=== PATIENT | male | born 1970 | race Asian ===

== ENCOUNTER 2021-08-23 04:33 | Emergency (ER) | payer MEDICAID ==
[~2021-08-23] VITALS: Ht 165.1 cm; Wt 113.4 kg
--- NOTE | 2021-08-23 04:34 | NUR ---
ROMULO TO ER BED 07, TRANSFERRED FROM EMS [facility] TO ER [facility] VIA EMS
[2021-08-23] MEDS ORDERED: MORPHINE SULFATE 4 MG/ML SYR IM ONE (04:35)
[2021-08-23] MEDS ORDERED: KETOROLAC 30 MG/ML VIAL IM ONE (04:35)
[2021-08-23 04:40] VITALS: BP 157/95
[2021-08-23] MEDS ORDERED: diazePAM 5 MG TAB PO ONE (05:25)
[2021-08-23] MEDS ORDERED: ACET-8386 PO ×2 (05:28→09:15)
[2021-08-23] MEDS ORDERED: NAPR-54 PO ×2 (05:28→09:15)
--- NOTE | 2021-08-23 06:29 | NUR ---
0630 - PT UNABLE TO AMBULATE AT THIS TIME DUE TO PAIN. PT STATES HEAT PACK AND MEDICATION IS HELPING SLOWLY. WILL CONTINUE TO MONITOR.
--- NOTE | 2021-08-23 07:12 | NUR ---
HANDOFF TO REBECA Addendum: 08/23/21 at 0712 by LETI HANDOFF TO REBECA. PLAN IS FOR D/C PENDING AMBULATION.
--- NOTE | 2021-08-23 07:20 | NUR ---
received report from aric garcia rn for continuity of care. pt [id number]. on room air. complains of 8/10 pain at this time. non ambulatory at this time. will continue to closely monitor.
--- NOTE | 2021-08-23 08:10 | NUR ---
51 Y/O M PRESENTS TO ED WITH L HIP PAIN. PT STATES PAIN STARTED 2 WEEK AGO. DENIES N/V/D; SKIN IS PINK/WARM/DRY; AAOX4 AMBULATE WITH ASSIST. LUNGS CLEAR BL; HR EVEN AND REGULAR; PT DENIES ANY FEVER, CP, SOB, OR COUGH AT THIS TIME; PATIENT STATES PAIN OF 8/10 AT THIS TIME; VSS; PATIENT POSITIONED FOR COMFORT; HOB ELEVATED; BEDRAILS UP X2; BED DOWN. ER MD MADE AWARE OF PT STATUS. PMH: HTN, DEPRESSION MEDS: UNABLE TO OBTAIN Addendum: 08/23/21 at 0824 by KIAH 51 Y/O M PRESENTS TO ED WITH L HIP PAIN. PT STATES PAIN STARTED 2 WEEK AGO. DENIES N/V/D; SKIN IS PINK/WARM/DRY; AAOX4 AMBULATE WITH ASSIST. LUNGS CLEAR BL; HR EVEN AND REGULAR; PT DENIES ANY FEVER, CP, SOB, OR COUGH AT THIS TIME; PATIENT STATES PAIN OF 8/10 AT THIS TIME; VSS; PATIENT POSITIONED FOR COMFORT; HOB ELEVATED; BEDRAILS UP X2; BED DOWN. ER MD MADE AWARE OF PT STATUS. PMH: SCIATICA, MA, HTN, ASTHMA, DM, DEPRESSION MEDS: METFORMIN, LOSARTAN, CARVEDILOL, TRILEPTAL, SEROQUIL, BABY ASPIRIN, CRESTOR, ALBUTEROL, MELOXICAM
--- NOTE | 2021-08-23 08:15 | NUR ---
FAWN WOODSON AT BEDSIDE.
[2021-08-23] MEDS ORDERED: GABAPENTIN 300 MG CAP PO ONE (08:25)
[2021-08-23] MEDS ORDERED: HYDROcodone/APAP 5/325 MG 1 TAB TAB PO ONE (08:25)
[2021-08-23] MEDS ORDERED: METH4TAB3 PO ×2 (08:58→09:15)
[2021-08-23] MEDS ORDERED: GABA100C PO ×2 (08:58→09:15)
[2021-08-23 09:36] VITALS: BP 143/102
--- NOTE | 2021-08-23 09:38 | NUR ---
Patient discharged with v/s stable. Written and verbal after care instructions given and explained. Patient alert, oriented and verbalized understanding of instructions. Wheel Chair Assisted with to car. All questions addressed prior to discharge. ID band removed. Patient advised to follow up with PMD. Rx of NORCO, NAPROXYN, MEDROL, GABAPENTIN given. Patient educated on indication of medication including possible reaction and side effects. Opportunity to ask questions provided and answered.
== END 2021-08-23 09:38 | disposition home or self-care (01) ==
LOC: MED 04:33
DX: M54.42 Lumbago with sciatica, left side (principal); J45.909 Unspecified asthma, uncomplicated; E11.9 Type 2 diabetes mellitus without complications; I10 Essential (primary) hypertension; F32.9 Major depressive disorder, single episode, unspecified; Z79.899 Other long term (current) drug therapy
CPT/HCPCS: 96372; 99284; J1885; J2270